=== PATIENT | male | born 1960 | race American Indian/Alaskan Native ===

== ENCOUNTER 2017-02-02 06:49 | Observation (INO) | payer SELFPAY ==
[2017-02-02 07:25] LABS: BASO % 0.6 % (0.0-2.0); EOS # 0.1 K/uL (0.0-0.7); EOS % 1.1 % (0.0-4.0); HEMOGLOBIN 15.2 g/dL (12.0-18.0); LYMPH # 3.3 K/uL (1.0-4.3); LYMPH % 43.1 % (20.0-40.0); MEAN CELL VOLUME 101.9 fL (80.0-94.0); MEAN CORPUSCULAR HEMOGLOBIN 33.4 pg (27.0-31.0); MEAN CORPUSCULAR HGB CONC 32.8 g/dL (33.0-37.0); MONO # 0.8 K/uL (0.0-0.8); MONO % 10.8 % (0.0-10.0); NEUT # 3.4 K/uL (1.8-7.0); NEUT % 44.4 % (50.0-75.0); NRBC % 0.1 % (0.0-2.0); RBC 4.54 Mil/uL (4.40-5.90); RED CELL DISTRIBUTION WIDTH 13.8 % (11.5-14.5); WHITE BLOOD COUNT 7.6 K/uL (4.8-10.8)
[2017-02-02] MEDS ORDERED: Sodium Chloride 0.9% 500 ML IV ONE ×2 (07:33→10:58)
[2017-02-02 07:47] LABS: GFR AFRICAN-AMERICAN > 60; GFR NON-AFRICAN AMERICAN > 60
[2017-02-02 07:48] LABS: ALB/GLOB RATIO 1.4 (1.0-2.1); ALT/SGPT 86 U/L (21-72); AST/SGOT 155 U/L (17-59); BLOOD UREA NITROGEN 11 mg/dL (9-20); CALCIUM 9.3 mg/dl (8.6-10.4)
[2017-02-02] MEDS ORDERED: Sodium Chloride 0.9% 1,000 ML ONE (07:50)
[2017-02-02 07:59] LABS: SALICYLATE < 1.0 mg/dL 1
[2017-02-02 08:02] LABS: PROTHROMBIN TIME 11.6 SECONDS (9.7-12.2)
[2017-02-02 08:05] LABS: ACETAMINOPHEN < 10.0 ug/mL (10.0-30.0)
--- NOTE | 2017-02-02 08:07 | C.PDOC ---
History Of Present Illness Patient BIBA for evaluation of AMS/substance abuse. Patient apparently found layign on the street, drinking a gallon of milk. Patient agitated and diaphoreticon ED arrival, states her used heroin and thinks it was laced with something. History limited due to clinical condition. Time Seen by Provider: 02/02/17 07:07 Chief Complaint (Nursing): Substance Abuse History Per: Patient, EMS History/Exam Limitations: clinical condition Onset/Duration Of Symptoms: Unknown Current Symptoms Are (Timing): Still Present Modifying Factor(s): Narcotics Severity: Moderate Past Medical History Reviewed: Historical Data, Nursing Documentation, Vital Signs Vital Signs: Last Vital Signs Temp Pulse 50 L 02/02/17 12:30 Resp 12 02/02/17 12:30 BP 156/87 H 02/02/17 12:30 Pulse Ox 96 02/02/17 13:51 - Medical History Other PMH: unknown Family History: States: Unknown Family Hx - Social History Hx Alcohol Use: No Hx Substance Use: No (unknown) Review Of Systems Review Of Systems: ROS cannot be obtained secondary to pt's inabilty to answer questions. Physical Exam - Physical Exam Appears: Non-toxic, Other (agitated and diaphoretic) Skin: Diaphoretic, No Rash Head: Atraumatic, Normacephalic Eye(s): bilateral: Other (pinpoint pupils B/L) Oral Mucosa: Moist Cardiovascular: Rhythm Regular (tachycardic ) Respiratory: Normal Breath Sounds, No Rales, No Rhonchi, No Wheezing Gastrointestinal/Abdominal: Normal Exam, Bowel Sounds, Soft, No Tenderness ED Course And Treatment - Laboratory Results Result Diagrams: 02/02/17 07:20 02/02/17 07:20 O2 Sat by Pulse Oximetry: 96 (RA) Pulse Ox Interpretation: Normal - CT Scan/US CT HEAD Other Rad Studies (CT/US): Read By Radiologist, Radiology Report Reviewed CT/US Interpretation: Accession No. : [id number]. Patient Name / ID : PAGE LEWIS / [id number]. Exam Date : 02/02/2017 12:51:04 ( Approved ). Study Comment : Sex / Age : M / 57Y. Creator : Jaquan Landry MD. Dictator : Jaquan Landry MD. Drying Machine Tender : Mid Wife : Jaquan Landry MD. Approver2 : Report Date : 02/02/2017 13:02:09. My Comment : . PROCEDURE: CT HEAD WITHOUT CONTRAST. HISTORY: DIZZINESS, NAUSEA. COMPARISON: None available. TECHNIQUE: Axial computed tomography images were obtained through the head/brain without intravenous contrast. Radiation dose: Total exam DLP = 143 mGy-cm. This CT exam was performed using one or more of the following dose reduction techniques: Automated exposure control, adjustment of the mA and/or kV according to patient size, and/or use of iterative reconstruction technique. FINDINGS: HEMORRHAGE: No intracranial hemorrhage. BRAIN: Jaramillo and white-matter density above and below the tentorium appears within normal limits throughout. There is no mass effect, edema or suspicious extra-axial fluid collection identified. Midline brain and appears unremarkable throughout. VENTRICLES: Unremarkable. No hydrocephalus. CALVARIUM: Unremarkable. PARANASAL SINUSES: Unremarkable as visualized. No significant inflammatory changes. MASTOID AIR CELLS: Unremarkable as visualized. No inflammatory changes. OTHER FINDINGS: None. IMPRESSION: Unremarkable unenhanced head CT. Progress Note: 12:20PM- Patient still c/o nausea, has 1 episode of vomiting, and states he is dizzy (when ambulation attempted). No evidence of head injury , however will get CT scan head to eval. Reevaluation Time: 15:00 Reassessment Condition: Improved (Patient reassessed, currently AAOx3, ambulating normally in the ED. Will discharge home, Rx for zofran ODT given.) Disposition Counseled Patient/Family Regarding: Studies Performed, Diagnosis, Need For Followup, Rx Given - Disposition Disposition: HOME/ ROUTINE Disposition Time: 15:00 Condition: STABLE - POA Present On Arrival: None - Clinical Impression Clinical Impression: Substance abuse
[2017-02-02 08:17] LABS: BENZODIAZEPINES, UR NEGATIVE (NEGATIVE)
[2017-02-02 08:18] LABS: BARBITURATES, UR NEGATIVE (NEGATIVE); URINE BACTERIA RARE (<OCC); URINE BILIRUBIN NEGATIVE (NEGATIVE); URINE BLOOD 1+ (NEGATIVE); URINE CLARITY Clear (Clear); URINE COLOR Yellow (YELLOW); URINE GLUCOSE (UA) NORMAL (Normal); URINE LEUKOCYTE ESTERASE NEG Leu/uL (Negative); URINE NITRATE NEGATIVE (NEGATIVE); URINE PROTEIN 2+ mg/dL (NEGATIVE)
[2017-02-02 08:20] LABS: OPIATES, UR NEGATIVE (NEGATIVE)
[2017-02-02 08:21] LABS: PHENCYCLIDINE, UR NEGATIVE (NEGATIVE)
[2017-02-02 12:33] VITALS: BP 156/87
[2017-02-02] MEDS ORDERED: Bacitracin 500 Units/gm Oint Foilpak UD TOP ONE (12:47)
--- NOTE | 2017-02-02 13:03 | CT ---
PROCEDURE: CT HEAD WITHOUT CONTRAST. HISTORY: DIZZINESS, NAUSEA COMPARISON: None available. TECHNIQUE: Axial computed tomography images were obtained through the head/brain without intravenous contrast. Radiation dose: Total exam DLP = 143 mGy-cm. This CT exam was performed using one or more of the following dose reduction techniques: Automated exposure control, adjustment of the mA and/or kV according to patient size, and/or use of iterative reconstruction technique. FINDINGS: HEMORRHAGE: No intracranial hemorrhage. BRAIN: Jaramillo and white-matter density above and below the tentorium appears within normal limits throughout. There is no mass effect, edema or suspicious extra-axial fluid collection identified. Midline brain and appears unremarkable throughout. VENTRICLES: Unremarkable. No hydrocephalus. CALVARIUM: Unremarkable. PARANASAL SINUSES: Unremarkable as visualized. No significant inflammatory changes. MASTOID AIR CELLS: Unremarkable as visualized. No inflammatory changes. OTHER FINDINGS: None. IMPRESSION: Unremarkable unenhanced head CT.
[2017-02-02] MEDS ORDERED: Bacitracin 500 Units/gm Oint Foilpak UD ONE (13:05)
[2017-02-02] MEDS ORDERED: Dextrose 50% SYRINGE Inj (50 ml) IVP STA (13:44)
[2017-02-02] MEDS ORDERED: Dextrose 50% SYRINGE Inj (50 ml) ONE (13:50)
[2017-02-02 15:24] VITALS: PULSE 62; RESP 18; TEMP 97.5; O2SAT 98
--- NOTE | 2017-02-03 11:14 | CARD ---
APPROVED REPORT EKG Measurement Heart [id number] <Conclusion> Normal sinus rhythm Voltage criteria for left ventricular hypertrophy Nonspecific T wave abnormality Prolonged QT Abnormal ECG
== END 2017-02-02 15:03 | disposition home or self-care (01) ==
LOC: C.ER 06:49 → MERGE 09:30 → C.9OBSV 09:30
PROVIDERS: ADMIT Emergency Medicine; ATTEND Emergency Medicine
DX: F14.10 Cocaine abuse, uncomplicated (principal); F10.120 Alcohol abuse with intoxication, uncomplicated; Y90.3 Blood alcohol level of 60-79 mg/100 ml
CPT/HCPCS: 70450; 80053; 81001; 82550; 82948; 84484; 85025; 85610; 85730; 96374; G0378; G0480; J2405; J2765; J7040